=== PATIENT | male | born 1995 | race Caucasian/White ===

== ENCOUNTER → 2017-10-30 | Outpatient (CLI) | payer OTHER ==
--- NOTE | 2017-10-30 10:38 | RADIOLOGY IMAGING REPORT ---
FACILITY: [facility] PATIENT NAME: Humberto Delgado : 1995 MR: [id number] V: [id number] EXAM DATE: ORDERING PHYSICIAN: [facility] TECHNOLOGIST: Location: [facility] [place] Patient: Humberto Delgado : 1995 Visit/Account:[id number] Date of Sevice: 10/30/2017 TESTICULAR HISTORY: Testicular pain, left COMPARISON: None. FINDINGS: Testes: Right testicle measures 5 x 2.4 x 2.9 cm. Left testicle measures 5.5 x 2.9 x 3.3 cm Symmetr ic and unremarkable blood flow documented by color and Duplex Doppler ultrasound. Epididymides: The head of the epididymis on the right measures 9 mm and appears unremarkable. The he ad of the epididymis on the left measures 1.6 cm and appears unremarkable Blood flow is unremarkable in each epididymis by color Doppler ultrasound. Hydrocele: Small left hydrocele Varicocele: None demonstrated IMPRESSION: Small left hydrocele Report Dictated By: Gwendolyn Padilla MD at 10/30/2017 10:33 AM Report E-Signed By: Gwendolyn Padilla MD at 10/30/2017 10:34 AM WSN:[email or web address]
== END ==
LOC: US 09:09
DX: N43.3 Hydrocele, unspecified (principal)
CPT/HCPCS: 76870